=== PATIENT | female | born 1940 | race Caucasian/White ===

== ENCOUNTER 2019-04-09 02:36 | Emergency (ER) | payer MEDICARE, OTHER ==
[~2019-04-09] VITALS: Ht 165.1 cm; Wt 63.5 kg
--- NOTE | 2019-04-09 02:58 | NUR ---
MD AT BEDSIDE EVALUATING WOUND ON THE BACK OF HEAD.
[2019-04-09] MEDS ORDERED: ACETAMINOPHEN 325 MG TABLET ONE (02:59)
[2019-04-09] MEDS ORDERED: TDAP [DIPH/PERTUSSIS/TET] 0.5 ML VIAL IM ONE ×2 (03:00)
[2019-04-09] MEDS ORDERED: ACETAMINOPHEN 325 MG TABLET PO ONE (03:00)
--- NOTE | 2019-04-09 03:12 | NUR ---
PT CAME TO ER BED 4 BIB RA C/O BLEEDING FROM THE BACK OF HER HEAD. PT STATES THAT SHE HIT HER HEAD ON THE ENDTABLE NEXT TO HER BED AFTER FEELING DIZZY FROM GETTING UP. AAOX4. NO SOB. BREATHING EVENLY AND UNLABORED. CONNECTED TO MONITOR.
[2019-04-09] MEDS ORDERED: LIDOCAINE 0.5%-EPI 1:200,000 50 ML VIAL ONE (03:24)
--- NOTE | 2019-04-09 04:26 | NUR ---
PT SENT TO CT
--- NOTE | 2019-04-09 05:50 | NUR ---
Patient discharged to home in stable condition. Written and verbal after care instructions given. Patient verbalizes understanding of instruction.
[2019-04-09 05:54] VITALS: BP 120/72
== END 2019-04-09 05:55 | disposition home or self-care (01) ==
LOC: ER 02:38
DX: S01.01XA Laceration without foreign body of scalp, initial encounter (principal); I10 Essential (primary) hypertension; F31.9 Bipolar disorder, unspecified; Z88.6 Allergy status to analgesic agent; W18.39XA Other fall on same level, initial encounter; Y93.89 Activity, other specified; Y92.89 Other specified places as the place of occurrence of the external cause; Y99.8 Other external cause status
CPT/HCPCS: 12001; 70450; 70486; 72125; 90471; 90715; 99284; A6403; J3490